=== PATIENT | male | born 1970 | race Two or more races ===

== ENCOUNTER → 2021-11-14 08:39 | Outpatient (BNVA) | payer SELFPAY | PROVIDERS: PCP Family Medicine; Visit Provider Nurse Practitioner Family | DX: R35.0 Frequency of micturition (principal); Z12.5 Encounter for screening for malignant neoplasm of prostate; N39.0 Urinary tract infection, site not specified | CPT/HCPCS: 81003; G0103 ==

== ENCOUNTER → 2022-03-11 09:33 | Outpatient (BNVA) | payer SELFPAY | PROVIDERS: PCP Family Medicine; Visit Provider Family Medicine | DX: R74.01 Elevation of levels of liver transaminase levels (principal); Z13.220 Encounter for screening for lipoid disorders; R73.01 Impaired fasting glucose; Z00.00 Encounter for general adult medical examination without abnormal findings; I10 Essential (primary) hypertension | CPT/HCPCS: 80053; 80061; 83036; 85025 ==

== ENCOUNTER 2022-04-09 07:04 | Day surgery (SDC) | payer SELFPAY ==
[2022-04-05 13:32] VITALS: BMI 31.6
[2022-04-09 07:25] VITALS: BP 133/98; PULSE 81; RESP 18; TEMP 36.6; O2SAT 97
[2022-04-09] MEDS: sodium chloride 0.9% 1,000 ML 30 ML IV (07:32)
--- NOTE | 2022-04-09 08:22 | ANES.PREANE2 ---
Pre-Anesthetic Assessment Height/Weight: Height 1.73 m Weight 94.347 kg Temp Pulse Resp BP Pulse Ox 97.9 F 81 18 133/98 97 04/09/22 07:25 04/09/22 07:25 04/09/22 07:25 04/09/22 07:25 04/09/22 07:25 Operation Date: 04/09/22 08:45 Proposed Procedures p Exam Under Anesthesia with possible hemorrhoidectomy 23693 34313/K64.9(Not Applicable) - Maxime Khalil MD s Exam Under Anesthesia(Not Applicable) - Maxime Khalil MD Familial anesthetic complications: None Was Beta Lex taken within 24 hours: Yes Was Clonidine taken within 24 hours: N/A Last intake: Intake Last Liquid Date 04/08/22 Last Liquid Time 20:00 Last Solid Date 04/08/22 Last Solid Time 20:00 Social No alcohol and No tobacco Exam alert, oriented x 3, clear to auscultation bilaterally and regular rate & rhythm Airway Submandibular: within normal limits Cervical ROM: within normal limits Mallampati: Class II Dentition: full CV/HEM Hypertension Metabolic Hyperlipidemia Anesthetic Plan ASA status: 2 Anesthesia: Choice Medications/Allergies Home Medications Medication Instructions Recorded Confirmed Last Taken Type aspirin 81 mg tablet,delayed 81 mg PO DAILY 11/14/21 04/09/22 04/07/22 History release (Adult Aspirin Regimen) azelastine 137 mcg (0.1 %) nasal 1 spray INTRANASAL PRN PRN 11/14/21 04/05/22 Unknown History spray aerosol fexofenadine 180 mg tablet 180 mg PO DAILY 11/14/21 04/05/22 Unknown History finasteride 5 mg tablet 5 mg PO DAILY 11/14/21 04/09/22 04/07/22 History metoprolol succinate 50 mg 50 mg PO DAILY 11/14/21 04/09/22 04/09/22 History tablet,extended release 24 hr multivitamin 1 tab PO DAILY 11/14/21 04/09/22 04/08/22 History rosuvastatin 5 mg tablet 5 mg PO DAILY 11/14/21 04/09/22 04/08/22 History tamsulosin 0.4 mg capsule 0.4 mg PO DAILY 11/14/21 04/09/22 04/08/22 History amlodipine 2.5 mg tablet 2.5 mg PO DAILY 04/09/22 04/09/22 04/09/22 History Allergies Allergy/AdvReac Type Severity Reaction Status Date / Time No Known Allergies Allergy Verified 03/22/22 13:58 Current Medications Generic Name Dose Route Start Last Admin Trade Name Freq PRN Reason Stop Dose Admin Sodium Chloride 1,000 mls @ 30 mls/hr 04/09/22 07:15 04/09/22 07:32 Sodium Chloride 0.9% IV 04/10/22 07:14 30 mls/hr .Q24H DILLON Administration PFSH Anesthesia Medical History Recurrent UTI Surgical History History of ankle surgery Family History Father , at age 40 Suicide Social History Smoking and tobacco status: current some day smoker Alcohol intake: current Marital status: Current occupational status: retired and disabled History of recent travel: No Data Anesthesia Cardiac Studies: No Data to Display
--- NOTE | 2022-04-09 08:44 | W.PM.OPSUD ---
Surgery/Procedure H&P Update DATE OF PROCEDURE: April 09, 2022 DATE H&P PERFORMED: 03/20/22 H&P UPDATE INFORMATION: I have reviewed H&P completed within last 30 days, I have examined patient prior to procedure and No changes to prior documentation CHANGES TO PREVIOUS DOCUMENTATION: Patient reports that patient reports that he forgot to do the enemas PRIMARY INDICATION FOR PROCEDURE: The same PLANNED PROCEDURE: Operation Date: 04/09/22 08:45 Proposed Procedures p Exam Under Anesthesia with possible hemorrhoidectomy 83451 66444/K64.9(Not Applicable) - Maxime Khalil MD s Exam Under Anesthesia(Not Applicable) - Maxime Khalil MD
[2022-04-09] MEDS: piperacillin-tazobactam 3.375 GM in sodium chloride 0.9% (plus) 50 ML IV (09:20)
--- NOTE | 2022-04-09 09:57 | P.OP_ITS ---
Operative Report Date of procedure: April 09, 2022 Pre-op diagnosis: Symptomatic hemorrhoid Post-op diagnosis: Right upper lateral hemorrhoid Procedure done: 1-Examination under anesthesia 2-hemorrhoidectomy Implants: Piece of Surgicel and Xeroform Specimens removed/disposition: Right upper lateral hemorrhoid Surgeon: Maxime Khalil MD Water Quality Control Engineer: Surgical techs Ashley and surgical assistant student Maday Circulating nurse Yesica Anesthesia: MAC (ROSCOE Snow) Estimated blood loss (mL): 5 IV fluids (mL): 400 Procedure: Patient was identified in the holding area and was taken back to the operating room, which was first placed in supine position then left lateral position ,all pressure points were padded. IV propofol infused by the OXYGEN PLANT OPERATOR prophylactic IV antibiotics were given per protocol,Time-out was done verifying the patient's name/date of /planned procedure and destination after the procedure, all were in agreement. Prep and drape was done thereafter under the usual sterile technique,Digital rectal examination was done shows no masses or blood,found to have induration at the right upper lateral hemorrhoid,started by infiltrating Exparel around the hemorrhoidectomy site. Anoscope was then introduced I was able to identify the internal/external right upper lateral , I placed a wet 4 x 4 inside the anal canal to prevent stools from encroaching on the wound site, that was taken out at the end of the procedure. I did apply a hemostat at the origin of the hemorrhoidal tissue, onto the right upper lateral hemorrhoid,using harmonic scalpel device for dissection safeguarding the external anal sphincter after that I was able to deliver the specimen to the circulating nurse hemostasis was achieved , and running 3-0 chromic catgut suture was applied to approximate the edges of the hemorrhoidectomy sites, that was done after thorough irrigation of the wound with warm normal saline . At that point after removal of the 4 x 4'sx1, I applied a piece of Xeroform impregnated lidocaine 2% jelly at the site of the wound and a piece of Surgicel both were rolled up as a Cigar like and and 2-0 silk stitch was applied at the end that faces the exit of the anus as it will be easier to pull out later on, followed by 4 x 4 application and ABD .,a surgical pants was then placed to hold the dressing in place. Count was completed at the end of the procedure, patient was then extubated and was taken to the recovery room in stable condition I was present for the whole entire procedure
[2022-04-09 10:02] VITALS: BP 121/73; PULSE 80; RESP 16; TEMP 36.2; O2SAT 96
[2022-04-09 10:07] VITALS: BP 121/74; PULSE 73; RESP 18; O2SAT 96
[2022-04-09 10:09] VITALS: BP 122/84; PULSE 71; RESP 18; TEMP 36.2; O2SAT 95
[2022-04-09 10:13] VITALS: BP 119/73; PULSE 74; RESP 16; TEMP 36.6; O2SAT 95
[2022-04-09 10:45] VITALS: BP 130/88; PULSE 61; RESP 18; O2SAT 100
--- NOTE | 2022-04-09 15:21 | ANE.PACU2 ---
Inpatient post-anesthesia follow up: Airway intact: Yes Vital signs: Temperature 98 F Pulse Rate 61 Respiratory Rate 18 Blood Pressure 130/88 Pulse Oximetry 100 Oxygen Delivery Me thod Room Air Oxygen Flow Rate 6 Fraction of Inspir ed Oxygen Hydration adequate: Yes Nausea and vomiting: No Pain level: 2 Mental status: Baseline
== END 2022-04-09 10:54 | disposition home or self-care (01) ==
PROVIDERS: PCP Family Medicine; Visit Provider Surgery
PROC: (CPT 46255; 2022-04-09 08:45)
PROC: (CPT 46255; 2022-04-09 08:45)
DX: K64.8 Other hemorrhoids (principal); I10 Essential (primary) hypertension; E78.5 Hyperlipidemia, unspecified; Z79.82 Long term (current) use of aspirin; F17.210 Nicotine dependence, cigarettes, uncomplicated
CPT/HCPCS: 46255; 88304; C9290; J2250; J2543; J2704; J3490; J7030

== ENCOUNTER → 2022-07-26 11:01 | Outpatient (BNVA) | payer SELFPAY | PROVIDERS: PCP Family Medicine; Visit Provider Family Medicine | DX: Z51.81 Encounter for therapeutic drug level monitoring (principal); Z13.220 Encounter for screening for lipoid disorders; R68.82 Decreased libido; N40.0 Benign prostatic hyperplasia without lower urinary tract symptoms; I10 Essential (primary) hypertension | CPT/HCPCS: 80053; 80061; 84403; 85025 ==

== ENCOUNTER 2022-10-17 08:57 | Outpatient (CLI) | payer SELFPAY ==
--- NOTE | 2022-10-17 09:00 | CT_ITS ---
WS: [id number] CT CALCIUM SCORE REASON FOR VISIT: Increased risk factors.; Coronary artery disease risk assessment COMPARISON: None TECHNIQUE: Noncontrast coronary CT in combination with quantitative analysis performed on a separate workstation. TOTAL EXAM DOSE: 78.51 mGy.cm ECG GATING: Prospective SCAN RANGE: Through the heart. COMPLICATIONS: None FINDINGS: Technical Quality/Examination Quality: Good Limitation: None Calcium scores: Left main coronary artery: 0.0 Left anterior descending artery: 0.00 Left circumflex artery: 0.0 Right coronary artery: 0.0 OTHER FINDINGS: Mediastinum: Normal. Thoracic aorta: Normal. Lungs: Normal. Upper Abdomen: Normal. CT/CT heart w calcium score 22054 IMPRESSION: 1. Total calcium score 0. 2. Risk factor is very low and statin is generally not recommended.
== END 2022-10-17 08:58 | disposition home or self-care (01) ==
LOC: RAD 08:58
PROVIDERS: PCP Family Medicine; Visit Provider Internal Medicine Cardiovascular Disease
DX: Z13.6 Encounter for screening for cardiovascular disorders (principal); Z82.49 Family history of ischemic heart disease and other diseases of the circulatory system
CPT/HCPCS: 75571

== ENCOUNTER → 2022-10-24 12:49 | Outpatient (BNVA) | payer SELFPAY | PROVIDERS: PCP Family Medicine; Visit Provider Emergency Medicine | DX: N39.0 Urinary tract infection, site not specified (principal); R39.9 Unspecified symptoms and signs involving the genitourinary system; R30.0 Dysuria | CPT/HCPCS: 81000; 87086 ==

== ENCOUNTER 2022-11-06 12:03 | Outpatient (CLI) | payer SELFPAY ==
--- NOTE | 2022-11-06 | ECG_ITS ---
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 Interpretive Statements NAME OF STUDY: TREADMILL STRESS ECHOCARDIOGRAM INDICATION: Chest Pain, shortness of breath PROCEDURE: At the baseline, the patient's blood pressure was 137/98 mm Hg with a heart rate of 126 bpm and oxygen saturation of 96%. The baseline electrocardiogram showed sinus tachycardia with normal ST-Ts. The patient exercised for 10 minutes 33 seconds on a [standard Wes protocol]. Patient attained a maximum heart rate of 181 beats per minute( 108 % of the maximum predicted heart rate) with a blood pressure at the peak exercise of 208/90 mm Hg. The EKG at the peak exercise revealed sinus tachycardia with no ST-T wave changes. Patient did not have any chest pain or any significant EKG changes with the exercise.The study was terminated due to maximal effort. During the recovery phase, there were no new changes. Blood pressure at the end of the recovery phase was 146/96 mm Hg with a heart rate of 130 beats per minute and oxygen saturation of 91%. Echocardiographic pictures were taken at the baseline, immediately following the peak exercise and during the recovery phase. CONCLUSION: 1. Normal EKG response to treadmill exercise. 2. No exercise-induced chest pain or cardiac arrhythmia 3. Excellent exercise tolerance, attained a maximum of 13.5 METs 4. Please see separate report for the echocardiographic response to exercise. Electronically Signed On 11-16-2022 8:20:17 TURKEY P[employer]ER by Areli Nelson M.D. [id number]
[2022-11-06 12:16] VITALS: BMI 32.2
--- NOTE | 2022-11-06 12:18 | USCV_ITS ---
Christopher Molina Age: 52 Gender: M : 1970 Exam Date: 11/06/2022 12:31 Ordering Phys: Areli Nelson MD ([email or web address]) Technologist: Caitlin Myers Exam Location: [facility] [place] Indication: CHEST PAIN AND SHORTNESS OF BREATH Rhythm: Sinus Patient History: Chest pain, Dyspnea/SOB, Family history Cardiac Medications: Beta lupe Medications in past 24 hours: NONE Contrast: Stress Results Protocol: Wes Total dose(mL): Exercise Duration (min:sec): 10:00 METS: 13.5 Resting HR: 125 Resting BP: 137 / 98 Peak HR: 181 Peak BP: 181 / 118 Max Predicted HR: 167 108 % Max Predicted HR Target HR: 142 Double Product: 81482 Stress Summary: The patient's target heart rate was achieved BP Response: Normal Reason for Termination: Maximal effort/unable to continue Cardiac Symptoms: None ECG Analysis Resting ECG: Refer to separate report for details Stress ECG: Refer to separate report for details Arrhythmia: Refer to separate report for details MEASUREMENTS (Male/Female) Normal Values 2D ECHO LVOT Diameter 2.0 cm LA Diameter 3.4 cm Aorta at Sinotubular Diameter 2.6 cm FINDINGS PROCEDURE: At the baseline, the patient's blood pressure was 137/98 mmHg with a heart rate of 125 bpm. The patient exercised for 10 minutes on a standard Wes protocol. Patient attained a maximum heart rate of 167 beats per minute(180% of the maximum predicted heart rate) with a blood pressure at the peak exercise of 181/118 mm Hg. During the recovery phase, there were no new changes. Echocardiographic pictures were taken at the baseline, immediately following the peak exercise and during the recovery phase. Baseline echocardiogram: Normal left ventricular size and systolic function with ejection fraction estimated at 65 %. No regional wall motion abnormalities. Normal right ventricle size and systolic function. Structurally normal trileaflet aortic valve. Trace mitral and tricuspid valve regurgitation. Normal left and right atrial size. No pericardial effusion. No intracardiac masses. Peak exercise echocardiogram: Normal augmentation of left ventricular systolic function with exercise. No new regional wall motion abnormalities. Recovery echocardiogram: Left ventricular systolic function normalizes. No regional wall motion abnormalities. CONCLUSIONS 1. This is a treadmill stress echocardiogram. 2. Patient exercised for 10 minutes. Excellent exercise tolerance, attained a maximum of 13.5 METs. Double product of 32,762. 3. Normal blood pressure and heart rate response to exercise. 4. Normal echocardiographic response to exercise. 5. Normal EKG response to treadmill exercise. Areli Nelson MD (Electronically Signed) Final Date: 16 November 2022 10:28 S
[2022-11-06 13:20] VITALS: BP 146/98; PULSE 128
== END 2022-11-06 12:04 | disposition home or self-care (01) ==
LOC: CDL 12:05
PROVIDERS: PCP Family Medicine; Visit Provider Internal Medicine Cardiovascular Disease
DX: R07.9 Chest pain, unspecified (principal); R06.02 Shortness of breath
CPT/HCPCS: 93017; 93350

== ENCOUNTER 2022-11-19 12:43 | Outpatient (CLI) | payer SELFPAY ==
--- NOTE | 2022-11-19 13:00 | US_ITS ---
WS: [id number] URINARY BLADDER ULTRASOUND HISTORY: Pre and post void bladder US evaluate for post void residual. COMPARISON: None available. Urinary bladder is well distended. No intraluminal filling defect. No free fluid adjacent to the urin sujata bladder. Bladder Wall Thickness: 0.2 cm. Bladder Prevoid: 8.7 cm x 8.8 cm x 7.0 cm. Prevoid volume: 278 ml. Bladder Postvoid: 2.7 cm x 2.1 cm x 2.6 cm. Postvoid volume: 8 ml. US/US bladder [id number] IMPRESSION: Negative urinary bladder ultrasound. No post void residual.
== END 2022-11-19 12:44 | disposition home or self-care (01) ==
PROVIDERS: PCP Family Medicine; Visit Provider Family Medicine
DX: N40.0 Benign prostatic hyperplasia without lower urinary tract symptoms (principal); R35.0 Frequency of micturition; R39.15 Urgency of urination
CPT/HCPCS: 76857

== ENCOUNTER → 2023-01-07 15:24 | Outpatient (BNVA) | payer SELFPAY | PROVIDERS: PCP Family Medicine; Visit Provider Urology | DX: N39.0 Urinary tract infection, site not specified (principal); N40.0 Benign prostatic hyperplasia without lower urinary tract symptoms; N41.1 Chronic prostatitis; N40.1 Benign prostatic hyperplasia with lower urinary tract symptoms | CPT/HCPCS: 81003 ==

== ENCOUNTER → 2023-04-10 13:59 | Outpatient (BNVA) | payer SELFPAY | PROVIDERS: PCP Family Medicine; Visit Provider Urology | DX: N40.1 Benign prostatic hyperplasia with lower urinary tract symptoms (principal) | CPT/HCPCS: 81003 ==

== ENCOUNTER → 2024-09-06 11:38 | Outpatient (BNVA) | payer SELFPAY | PROVIDERS: PCP Family Medicine; Visit Provider Family Medicine | DX: Z51.81 Encounter for therapeutic drug level monitoring (principal); Z13.220 Encounter for screening for lipoid disorders; E55.9 Vitamin D deficiency, unspecified; R68.82 Decreased libido | CPT/HCPCS: 80053; 80061; 82306; 84153; 84403; 85025 ==

== ENCOUNTER → 2025-10-25 13:15 | Outpatient (BNVA) | payer SELFPAY | PROVIDERS: PCP Family Medicine; Visit Provider Family Medicine | DX: Z00.00 Encounter for general adult medical examination without abnormal findings (principal); Z51.81 Encounter for therapeutic drug level monitoring; Z13.6 Encounter for screening for cardiovascular disorders; E55.9 Vitamin D deficiency, unspecified; R53.81 Other malaise; R53.83 Other fatigue; E53.8 Deficiency of other specified B group vitamins | CPT/HCPCS: 80053; 80061; 82306; 82607; 84403; 85025 ==